=== PATIENT | female | born 1950 | race Caucasian/White ===

== ENCOUNTER → 2016-09-04 | Outpatient (CLI) | payer MEDICARE, OTHER | LOC: RAD 12:36 | CPT/HCPCS: J3301; Q9967 ==

== ENCOUNTER → 2016-11-20 | Outpatient (CLI) | payer MEDICARE, OTHER | LOC: RAD 13:30 | DX: M16.12 Unilateral primary osteoarthritis, left hip (principal) | CPT/HCPCS: J3301; Q9967 ==

== ENCOUNTER → 2020-07-16 | Outpatient (CLI) | payer MEDICARE, OTHER ==
[2020-07-16 11:12] LABS: BASO # 0.1 (0.02-0.10); EOS # 0.1 (0.04-0.40); EOS % 1.6 % (1.0-5.0); HEMATOCRIT 48.1 % (37.0-47.0); HEMOGLOBIN 15.7 g/dL (12.5-16.0); LYMPH# 1.1 (1.50-4.00); MEAN CELL VOLUME 88 fl (78-100); MEAN CORPUSCULAR HEMOGLOBIN 29 pg (27-31); MEAN CORPUSCULAR HGB CONC 33 g/dL (33-37); MEAN PLATELET VOLUME 9.7 fl (7.4-10.4); MONO # 0.4 (0.20-0.80); NEU # 3.5 (1.40-6.50); PLATELET COUNT 277 K/mm3 (130-400); RED BLOOD COUNT 5.48 M/mm3 (4.10-5.30); RED CELL DISTRIBUTION WIDTH 14.1 % (11.5-14.5); WHITE BLOOD COUNT 5.1 K/mm3 (4.8-10.8)
[2020-07-16 11:35] LABS: ALBUMIN 3.7 g/dL (3.4-4.8); SODIUM 139 mmol/L (136-145)
[2020-07-16 11:36] LABS: CALCIUM 9.4 mg/dL (8.3-10.5)
[2020-07-16 11:38] LABS: GLUCOSE 109 mg/dL (65-105); TOTAL PROTEIN 6.4 g/dL (6.2-8.1)
[2020-07-16 11:39] LABS: CARBON DIOXIDE 27 mmol/L (23-31); TOTAL BILIRUBIN 0.6 mg/dL (0.2-1.2)
[2020-07-16 11:43] LABS: AST-SGOT 16 U/L (5-34)
[2020-07-16 11:44] LABS: ALT/SGPT 18 U/L (0-55)
[2020-07-16 12:15] LABS: ERYTHROCYTE SEDIMENTATION RATE 7 mm/hr (0-30)
== END ==
LOC: LAB 10:50
PROVIDERS: Internal Medicine
DX: I10 Essential (primary) hypertension (principal)

== ENCOUNTER → 2020-08-21 | Outpatient (CLI) | payer MEDICARE, OTHER ==
[2020-08-21 23:22] LABS: CORTISOL, AM (0800) 20 ug/dL (3-20)
[2020-08-22 19:19] LABS: ADRENOCORTICOTROPIC HORMONE 36 pg/mL (5-27)
== END ==
LOC: LAB 10:01
PROVIDERS: Internal Medicine
DX: M81.0 Age-related osteoporosis without current pathological fracture (principal)

== ENCOUNTER → 2020-08-24 | Outpatient (CLI) | payer MEDICARE, OTHER ==
[2020-08-27 06:56] LABS: URINE TOTAL VOLUME 3400 mL
== END ==
LOC: LAB 12:46
PROVIDERS: Internal Medicine
DX: M81.0 Age-related osteoporosis without current pathological fracture (principal)

== ENCOUNTER → 2020-11-27 | Outpatient (CLI) | payer MEDICARE, OTHER ==
[2020-11-27 14:46] LABS: BASO # 0.07 (0.02-0.10); EOS # 0.08 (0.04-0.40); EOS % 1.2 % (1.0-5.0); HEMATOCRIT 47.8 % (37.0-47.0); HEMOGLOBIN 15.7 g/dL (12.5-16.0); LYMPH# 2.06 (1.50-4.00); MEAN CELL VOLUME 88 fl (78-100); MEAN CORPUSCULAR HEMOGLOBIN 29 pg (27-31); MEAN CORPUSCULAR HGB CONC 33 g/dL (33-37); MEAN PLATELET VOLUME 9.6 fl (7.4-10.4); MONO # 0.43 (0.20-0.80); NEU # 3.96 (1.40-6.50); PLATELET COUNT 275 K/mm3 (130-400); RED BLOOD COUNT 5.43 M/mm3 (4.10-5.30); RED CELL DISTRIBUTION WIDTH 13.2 % (11.5-14.5); WHITE BLOOD COUNT 6.6 K/mm3 (4.8-10.8)
[2020-11-27 15:01] LABS: POTASSIUM 4.3 mmol/L (3.5-5.1); PROTHROMBIN TIME 9.7 SECONDS (9.0-12.0)
[2020-11-27 15:02] LABS: ALBUMIN 3.8 g/dL (3.4-4.8)
[2020-11-27 15:03] LABS: CALCIUM 10.4 mg/dL (8.3-10.5)
[2020-11-27 15:04] LABS: TOTAL PROTEIN 6.5 g/dL (6.2-8.1)
[2020-11-27 15:06] LABS: TOTAL BILIRUBIN 0.5 mg/dL (0.2-1.2)
[2020-11-27 15:12] LABS: MAGNESIUM 2.11 mg/dL (1.60-2.60)
[2020-11-27 15:27] LABS: URINE APPEARANCE CLEAR; URINE BILIRUBIN NEGATIVE (NEGATIVE); URINE BLOOD NEGATIVE (NEGATIVE); URINE COLOR YELLOW; URINE GLUCOSE NEGATIVE (NEGATIVE); URINE KETONE NEGATIVE (NEGATIVE); URINE NITRATE NEGATIVE (NEGATIVE); URINE PROTEIN(semi-quant) NEGATIVE (NEGATIVE); URINE UROBILINOGEN NORMAL (NORMAL)
[2020-11-27 15:28] LABS: URINE LEUKOCYTE ESTERASE TRACE (NEGATIVE)
== END ==
LOC: LAB 14:24
PROVIDERS: Internal Medicine
DX: Z01.818 Encounter for other preprocedural examination (principal)

== ENCOUNTER 2021-01-30 13:00 | Outpatient (RCR) | payer MEDICARE, OTHER | END 2021-03-15 | disposition home or self-care (01) | LOC: PT 13:00 | DX: Z98.1 Arthrodesis status (principal) ==

== ENCOUNTER 2021-03-20 12:58 | Outpatient (RCR) | payer MEDICARE, OTHER | END 2021-03-27 17:00 | disposition home or self-care (01) | LOC: PT 12:58 | DX: Z98.1 Arthrodesis status (principal) ==

== ENCOUNTER → 2021-06-27 | Outpatient (CLI) | payer MEDICARE, OTHER ==
[2021-06-27 16:21] LABS: BASO # 0.07 K/mm3 (0.02-0.10); EOS # 0.09 K/mm3 (0.04-0.40); EOS % 1.3 % (1.0-5.0); HEMOGLOBIN 15.7 g/dL (12.5-16.0); LYMPH# 1.97 K/mm3 (1.50-4.00); MEAN CELL VOLUME 88 fl (78-100); MEAN CORPUSCULAR HEMOGLOBIN 29 pg (27-31); MEAN CORPUSCULAR HGB CONC 33 g/dL (33-37); MEAN PLATELET VOLUME 9.7 fl (7.4-10.4); MONO # 0.41 K/mm3 (0.20-0.80); NEU # 4.34 K/mm3 (1.40-6.50); PLATELET COUNT 282 K/mm3 (130-400); RED BLOOD COUNT 5.48 M/mm3 (4.10-5.30); RED CELL DISTRIBUTION WIDTH 13.5 % (11.5-14.5); WHITE BLOOD COUNT 6.9 K/mm3 (4.8-10.8)
[2021-06-27 16:32] LABS: ALBUMIN 3.9 g/dL (3.4-4.8); POTASSIUM 4.3 mmol/L (3.5-5.1)
[2021-06-27 16:33] LABS: CALCIUM 9.6 mg/dL (8.3-10.5)
[2021-06-27 16:34] LABS: TOTAL PROTEIN 6.3 g/dL (6.2-8.1)
[2021-06-27 16:36] LABS: TOTAL BILIRUBIN 0.4 mg/dL (0.2-1.2)
[2021-06-27 16:41] LABS: MAGNESIUM 2.04 mg/dL (1.60-2.60)
== END ==
LOC: LAB 16:01
PROVIDERS: Internal Medicine
DX: M81.0 Age-related osteoporosis without current pathological fracture (principal); M43.10 Spondylolisthesis, site unspecified; E78.2 Mixed hyperlipidemia; I10 Essential (primary) hypertension; M41.9 Scoliosis, unspecified; R10.84 Generalized abdominal pain

== ENCOUNTER → 2021-07-01 | Outpatient (CLI) | payer MEDICARE, OTHER | LOC: RAD 09:50 | DX: K57.30 Diverticulosis of large intestine without perforation or abscess without bleeding (principal); M43.16 Spondylolisthesis, lumbar region; N28.89 Other specified disorders of kidney and ureter | CPT/HCPCS: Q9967 ==

== ENCOUNTER → 2023-07-20 | Outpatient (CLI) | payer MEDICARE, OTHER | LOC: MAMMO 10:54 | DX: Z12.31 Encounter for screening mammogram for malignant neoplasm of breast (principal) ==

== ENCOUNTER → 2023-08-05 | Outpatient (CLI) | payer MEDICARE, OTHER ==
[2023-09-27 11:08] LABS: HEPATITIS C VIRUS ANTIBODY NON REACTIVE
[2023-09-27 11:24] LABS: CALCIUM 9.5 mg/dL (8.3-10.5); MAGNESIUM 2.01 mg/dL (1.60-2.60); TOTAL BILIRUBIN 0.8 mg/dL (0.2-1.2); TOTAL PROTEIN 6.5 g/dL (6.2-8.1)
[2023-09-27 11:27] LABS: BASO # 0.03 K/mm3 (0.02-0.10); EOS # 0.13 K/mm3 (0.04-0.40); EOS % 2.3 % (1.0-5.0); HEMATOCRIT 49.2 % (37.0-47.0); HEMOGLOBIN 16.3 g/dL (12.5-16.0); LYMPH# 1.72 K/mm3 (1.50-4.00); MEAN CELL VOLUME 88 fl (78-100); MEAN CORPUSCULAR HEMOGLOBIN 29 pg (27-31); MEAN CORPUSCULAR HGB CONC 33 g/dL (33-37); MEAN PLATELET VOLUME 10.6 fl (7.4-10.4); NEU # 3.49 K/mm3 (1.40-6.50); PLATELET COUNT 147 K/mm3 (130-400); RED BLOOD COUNT 5.62 M/mm3 (4.10-5.30); RED CELL DISTRIBUTION WIDTH 13.7 % (11.5-14.5); WHITE BLOOD COUNT 5.7 K/mm3 (4.8-10.8)
== END ==
LOC: LAB 08:00
PROVIDERS: Internal Medicine
DX: Z12.11 Encounter for screening for malignant neoplasm of colon (principal); Z11.59 Encounter for screening for other viral diseases; I10 Essential (primary) hypertension; E78.2 Mixed hyperlipidemia; K90.9 Intestinal malabsorption, unspecified; R73.9 Hyperglycemia, unspecified